=== PATIENT | male | born 1935 | race Caucasian/White ===

== ENCOUNTER 2017-05-08 13:25 | Inpatient (IN) | payer MEDICARE, BC ==
[2017-05-08] MEDS ORDERED: ALBUTEROL SULFATE 2.5 MG/0.5 ML VIAL.NEB IH ONE ×4 (13:35→15:06)
[2017-05-08 13:50] LABS: Hematocrit 41.2 % (42.0-52.0); Hemoglobin 13.8 gm/dL (13.5-18.0); Mean Cell Volume 90.7 fl (78-100); Mean Corpuscular Hemoglobin 30.4 pg (27-31); Mean Corpuscular Hgb Conc 33.5 g/dl (32-36); Mean Platelet Volume 11.6 fl (6.0-9.5); Platelet Count 180 K/mm3 (150-450); Red Blood Count 4.54 M/mm3 (4.7-6.0); Red Cell Distribution Width 15.3 % (11.5-14.0); White Blood Count 8.8 K/mm3 (4.0-10.5)
[2017-05-08 13:54] LABS: Total Cells Counted 100
[2017-05-08] MEDS ORDERED: METHYLPREDNISOLONE SOD SUCC/PF 40 MG/ML VIAL IV ONE (14:03)
[2017-05-08] MEDS ORDERED: METHYLPREDNISOLONE SOD SUCC/PF 40 MG/ML VIAL ONE (14:10)
[2017-05-08 14:12] LABS: Band 4 % (0-2.0); Lymphocyte 14 % (20-51); Monocyte 7 % (0-9); Neutrophil 75 % (42-75); Neutrophil # 6.6 K/mm3 (1.3-6.0); Platelet Estimate Normal (NORMAL); RBC Morphology Normal (NORMAL)
[2017-05-08 14:29] LABS: Albumin * 2.8 gm/dl (3.4-5.0); Anion Gap 12.1 mmol/L (6.8-13.8); BUN/Creatinine Ratio 21.5 (9.0-21.6); Bilirubin, Total 0.5 mg/dL (0.0-1.1); Ca. Corrected For Albumin 9.4 mg/dL (8.4-10.2); Calcium * 8.8 mg/dL (7.9-10.9); Potassium 4.1 mmol/L (3.4-4.6); Total Protein 6.7 gm/dL (6.2-8.2)
[2017-05-08 14:30] LABS: Troponin I 0.032 ng/ml (0.00-0.10)
[2017-05-08] MEDS ORDERED: ALBUTEROL SULFATE 2.5 MG/0.5 ML VIAL.NEB IH PRN (17:21)
[2017-05-08] MEDS ORDERED: METHYLPREDNISOLONE SOD SUCC 80 MG in WATER FOR INJ.,BACTERIOSTATIC 0 ML IV SCH (17:30)
--- NOTE | 2017-05-08 18:59 | HP ---
Chief Complaint - Chief Complaint Date of Service: 05/08/17 Time of Service: 18:53 Chief Complaint: shortness of breath and low Oxygenation History of Present Illness: Rios boykin, is an 82-year-old white male, patient of Solange Baugh, with previous medical history of diabetes mellitus type 2, hypertension, hyperlipidemia, COPD on nocturnal home O2, who was admitted on 03/08/2017 because of shortness of breath and low oxygen saturation. The patient was starting to have URI signs and symptoms 4 days prior to admission. The brought him to our emergency room where his chest x-ray did not show pneumonia. He was told that he had acute bronchitis and was given prednisone and sent home. One day prior to admission his coughing, congestion got worst. He was coughing a lot of tannish phlegm associated with wheezing. His oxygen saturation dropped down to the 70's when he started to go to the bathroom. The then called EMS and the patient was brought to our emergency room. He was saturating in the low 90's with 6 L of mask then nonrebreather. He continued to be tachypneic in the upper 20's and so he was started on BiPap by ED. His CXR showed b/l perihilar opacities- atelectasis vs pulmonary edema but infection could not be ruled out.He was then admited for further treatment. - Patient's Past Medical History Patient History - Medical: Arthritis, Cataracts, Chronic Pain, Diabetes Type 2, Seizures, Other Patient History - Cardiac/Respiratory: Atrial Fibrillation, CHF, COPD, Hypertension, Hyperlipidemia, Myocardial Infarction, Pneumonia Patient History - Cancer: No Hx of Cancer Patient History - Surgical Procedures: Cataracts, Colon Resection, Colonoscopy, T & A, Other Patient History - Other: None - Social History Living Situations: spouse Abuse History: No History of abuse Psych History: Hx of Anxiety, Hx of Depression, Current tx/ever been on anti- depressants or anti-anxiety meds Smoking Status: Former smoker Have you smoked in the past 12 months: No Do you dip or chew tobacco: No Patient requests Smoking Cessation Consult: No Initiate information on Smoking Cessation: No Alcohol Use: rarely Drug Use: none - Immunizations Immunizations Up to Date: Yes Hx Pneumococcal Vaccination: Yes History of Influenza Vaccine: Yes Review Of Systems (GEN) - Review of Systems Generalized/Overall Review: Absent: Chills, Fever Respiratory: Present: Cough, Shortness of Breath, Wheezing Cardiac: Absent: Chest Pain, Edema, Palpitations Abdominal: Absent: Nausea, Vomiting Genitourinary: Absent: Urgency, Frequency Allergies/Adverse Reactions: Allergies Allergy/AdvReac Type Severity Reaction Status Date / Time lisinopril Allergy Unknown Verified 05/08/17 13:43 levofloxacin Allergy Verified 05/08/17 13:43 terazosin AdvReac Pain Verified 05/08/17 13:43 Home Medications: HOME MEDICATIONS Arformoterol Tartrate [Brovana] 15 mcg IH DAILY 02/24/15 [Last Taken Unknown] Cyanocobalamin (Vitamin B-12) [Vitamin B-12] 1,000 mcg PO DAILY 02/24/15 [Last Taken Unknown] Escitalopram Oxalate [Lexapro] 10 mg PO DAILY 02/24/15 [Last Taken Unknown] Furosemide [Lasix] 40 mg PO DAILY 02/24/15 [Last Taken Unknown] glipiZIDE [Glucotrol Xl] 5 mg PO BID 02/24/15 [Last Taken Unknown] Allopurinol [Zyloprim] 300 mg PO BID 05/08/17 [Last Taken Unknown] Amlodipine Besylate 10 mg PO DAILY 05/08/17 [Last Taken Unknown] Budesonide [Pulmicort Respules] 2 ml IH BID 05/08/17 [Last Taken Unknown] Digoxin [Digitek] 125 mcg PO DAILY 05/08/17 [Last Taken Unknown] Furosemide [Lasix] 20 mg PO PRN PRN 05/08/17 [Last Taken Unknown] Magnesium Gluconate 250 mg PO DAILY 05/08/17 [Last Taken Unknown] Metoprolol Tartrate 50 mg PO DAILY 05/08/17 [Last Taken Unknown] Warfarin Sodium [Coumadin] 6 mg PO SUMOWEFRSA 05/08/17 [Last Taken Unknown] Warfarin Sodium [Coumadin] 7 mg PO TUTH 05/08/17 [Last Taken Unknown] guaiFENesin [Mucinex] 1,200 mg PO BID 05/08/17 [Last Taken Unknown] risperiDONE [Risperdal] 10 mg PO BID 05/09/17 [Last Taken Unknown] Exam - Exam Vital Signs: Vital Signs - Last Taken Temp 36.5 C 05/08/17 18:08 Pulse 73 05/08/17 18:08 Resp 25 H 05/08/17 18:08 BP 140/73 05/08/17 18:08 Pulse Ox 91 05/08/17 18:08 Constitutional: Present: Alert, Oriented x3, Cooperative ENT Exam: Present: hard of hearing Eye Exam: bilateral eye: normal inspection, PERRL, EOMI Respiratory: Present: decreased breath sounds, No rales, No wheezing Cardiovascular/Chest: Present: regular rate, rhythm, no JVD, no murmur Abdomen: Present: Normal bowel sounds, soft, nontender, nondistended Extremity: Present: no calf tenderness, pedal edema Diagnostic Studies: Laboratory Results WBC 8.8 K/mm3 (4.0-10.5) 05/08/17 13:49 RBC 4.54 M/mm3 (4.7-6.0) L 05/08/17 13:49 Hgb 13.8 gm/dL (13.5-18.0) 05/08/17 13:49 Hct 41.2 % (42.0-52.0) L 05/08/17 13:49 MCV 90.7 fl (78-100) 05/08/17 13:49 MCH 30.4 pg (27-31) 05/08/17 13:49 MCHC 33.5 g/dl (32-36) 05/08/17 13:49 RDW 15.3 % (11.5-14.0) H 05/08/17 13:49 Plt Count 180 K/mm3 (150-450) 05/08/17 13:49 MPV 11.6 fl (6.0-9.5) H 05/08/17 13:49 Neutrophils % (Manual) 75 % (42-75) 05/08/17 13:49 Band Neuts % (Manual) 4 % (0-2.0) H 05/08/17 13:49 Lymphocytes % (Manual) 14 % (20-51) L 05/08/17 13:49 Monocytes % (Manual) 7 % (0-9) 05/08/17 13:49 Neutrophils # (Manual) 6.6 K/mm3 (1.3-6.0) H 05/08/17 13:49 Lymphocytes # (Manual) 1.2 k/mm3 (1.5-3.5) L 05/08/17 13:49 Monocytes # (Manual) 0.6 k/mm3 (0.0-1.0) 05/08/17 13:49 Platelet Estimate Normal (NORMAL) 05/08/17 13:49 RBC Morphology Normal (NORMAL) 05/08/17 13:49 pCO2 33.9 mmHg (35.0-48.0) L 05/08/17 13:35 pO2 56.8 mmHg (83.0-108.0) L 05/08/17 13:35 HCO3 21.1 mmol/L (21.0-28.0) 05/08/17 13:35 Total CO2 22.1 mmol/L (19.0-24.0) 05/08/17 13:35 Base Excess -2.8 mmol/L (-2.0-3.0) L 05/08/17 13:35 ABG pH 7.41 (7.35-7.45) 05/08/17 13:35 ABG O2 Sat (Measured) 90.2 % (94.0-98.0) L 05/08/17 13:35 Sodium 139 mmol/L (132-142) 05/08/17 13:49 Plasma Sodium 141 mmol/L (130-142) 05/08/17 13:49 Potassium 4.1 mmol/L (3.4-4.6) 05/08/17 13:49 Chloride 104 mmol/L (97-106) 05/08/17 13:49 Carbon Dioxide 27.0 mmol/L (24-32.6) 05/08/17 13:49 Anion Gap 12.1 mmol/L (6.8-13.8) 05/08/17 13:49 BUN 28 mg/dL (6-23) H 05/08/17 13:49 Creatinine 1.30 mg/dL (0.4-1.4) 05/08/17 13:49 Est GFR (Non-Af Amer) 56 mL/min (60-130) L D 05/08/17 13:49 BUN/Creatinine Ratio 21.5 (9.0-21.6) 05/08/17 13:49 Random Glucose 223 mg/dL (70-110) H 05/08/17 13:49 Calcium 8.8 mg/dL (7.9-10.9) 05/08/17 13:49 Calcium Adj for Albumin 9.4 mg/dL (8.4-10.2) 05/08/17 13:49 Total Bilirubin 0.5 mg/dL (0.0-1.1) 05/08/17 13:49 AST 24 U/L (0-48) 05/08/17 13:49 ALT 34 U/L (19-67) 05/08/17 13:49 Alkaline Phosphatase 66 U/L (50-170) 05/08/17 13:49 Troponin I 0.032 ng/ml (0.00-0.10) 05/08/17 13:49 B-Natriuretic Peptide 1693 pg/mL (5-650) H 05/08/17 13:49 Total Protein 6.7 gm/dL (6.2-8.2) 05/08/17 13:49 Albumin 2.8 gm/dl (3.4-5.0) L 05/08/17 13:49 Assessment/Plan - Assessment/Plan (1) Acute exacerbation of chronic obstructive pulmonary disease Assessment: likely due to acute bronchitis r/o beginning pneumonia. will continue with IV antibiotics , IV solumedrol and breathing treatments. will get ABG with current BiPAp setting . Problem: Acute (2) Diabetes mellitus type 2 in obese Assessment: continue with home medications Problem: Chronic (3) Hypertension Assessment: continue with home medications Problem: Chronic Qualifiers: Hypertension type: essential hypertension Qualified Code(s): I10 - Essential (primary) hypertension (4) Hyperlipidemia Assessment: continue with home medications. Problem: Chronic Qualifiers: Hyperlipidemia type: mixed hyperlipidemia Qualified Code(s): E78.2 - Mixed hyperlipidemia (5) History of traumatic brain injury Problem: Acute
[2017-05-08 19:45] LABS: Prothrombin Time (Patient) 24.9 Seconds (9.0-11.0)
[2017-05-08 19:46] LABS: INR 2.47 INR (0.90-1.10)
[2017-05-08] MEDS: AZITHROMYCIN 500 MG in DEXTROSE 5 % IN WATER 250 ML IV SCH ×2 (20:18)
[2017-05-08] MEDS: METHYLPREDNISOLONE SOD SUCC/PF 125 MG/2 ML VIAL IV SCH (20:21)
[2017-05-08] MEDS ORDERED: ALLOPURINOL 100 MG TABLET ONE (21:09)
[2017-05-08] MEDS: glipiZIDE 5 MG TAB.SR.24H PO SCH (21:11)
[2017-05-08] MEDS: ALLOPURINOL 300 MG TABLET PO SCH ×2 (21:13→21:23)
[2017-05-09] MEDS: METHYLPREDNISOLONE SOD SUCC/PF 125 MG/2 ML VIAL IV SCH ×2 (02:18→09:04)
[2017-05-09] MEDS: INSULIN LISPRO 100 UNITS/ML VIAL SC SCH ×4 (07:47→20:10)
[2017-05-09] MEDS: CYANOCOBALAMIN 1,000 MCG TABLET PO SCH (08:51)
[2017-05-09] MEDS: DIGOXIN 0.125 MG TABLET PO SCH (08:52)
[2017-05-09] MEDS: FUROSEMIDE 40 MG TABLET PO SCH (08:52)
[2017-05-09] MEDS: amLODIPine BESYLATE 10 MG TABLET PO SCH (08:52)
[2017-05-09] MEDS: glipiZIDE 5 MG TAB.SR.24H PO SCH ×2 (08:52→17:36)
[2017-05-09] MEDS: risperiDONE 1 MG TABLET PO SCH ×2 (08:52→20:06)
[2017-05-09] MEDS: METOPROLOL TARTRATE 50 MG TABLET PO SCH (08:52)
[2017-05-09] MEDS: METHYLPREDNISOLONE SOD SUCC 80 MG in WATER FOR INJ.,BACTERIOSTATIC 0 ML IV SCH ×3 (09:16→20:05)
[2017-05-09] MEDS ORDERED: POTASSIUM CHLORIDE 20 MEQ TABLET.SA PO ONE (09:55)
[2017-05-09] MEDS ORDERED: FUROSEMIDE 10 MG/ML VIAL IV ONE (09:55)
--- NOTE | 2017-05-09 09:59 | PN ---
Subjective - Date and Time Seen Date: 05/09/17 Time: 09:57 Subjective Narrative: Patient is feeling better. NAD. BipAp off. Objective - Review of Systems Generalized/Overall Review: Denies: Chills, Fever Respiratory: Reports: Cough, Shortness of Breath Cardiac: Denies: Chest Pain, Edema, Palpitations Abdominal: Denies: Nausea, Vomiting Genitourinary Symptoms: Denies: Urgency, Frequency Musculoskeletal Complaints: Reports: Joint Pain - Vitals Vitals: Last Vital Signs Temp 36.5 C 05/09/17 06:44 Pulse 75 05/09/17 08:52 Resp 23 H 05/09/17 07:10 BP 149/70 05/09/17 08:52 Pulse Ox 94 05/09/17 07:49 - Abnormal Lab Findings Abnormal Lab Findings: Abnormal Lab Results 05/08/17 05/08/17 05/08/17 Range/Units 19:00 19:00 19:24 PT 24.9 H (9.0-11.0) Seconds INR (Anticoag Therapy) 2.47 H (0.90-1.10) INR pO2 69.5 L (83.0-108.0) mmHg Base Excess -2.8 L (-2.0-3.0) mmol/L Digoxin 0.4 L (0.5-2.0) ng/mL - Exam Constitutional: Present: Alert, Oriented x3, Cooperative ENT Exam: Present: hearing grossly normal Neck: Present: supple Respiratory: Present: decreased breath sounds, crackles, No wheezing Cardiovascular/Chest: Present: regular rate, rhythm, no JVD, no murmur Abdomen: Present: Normal bowel sounds, soft, nontender, nondistended Extremity: Present: no calf tenderness, pedal edema Assessment/Plan - Problems/Diagnosis (1) Acute exacerbation of chronic obstructive pulmonary disease Problem: Acute Narrative: continue with present management. will give extra lasix dose today. (2) Diabetes mellitus type 2 in obese Problem: Chronic (3) Hypertension Problem: Chronic Qualifiers: Hypertension type: essential hypertension Qualified Code(s): I10 - Essential (primary) hypertension (4) Hyperlipidemia Problem: Chronic Qualifiers: Hyperlipidemia type: mixed hyperlipidemia Qualified Code(s): E78.2 - Mixed hyperlipidemia (5) History of traumatic brain injury Problem: Acute
[2017-05-09] MEDS: NYSTATIN 15 APPL BTL TP SCH ×2 (14:58→20:05)
[2017-05-09] MEDS ORDERED: WARFARIN SODIUM 6 MG TABLET PO SCH (17:00)
[2017-05-09] MEDS: cefTRIAXone SODIUM 1,000 MG in DEXTROSE 5 % IN WATER 50 ML IV SCH ×2 (17:36)
[2017-05-09] MEDS: AZITHROMYCIN 500 MG in DEXTROSE 5 % IN WATER 250 ML IV SCH ×2 (20:08)
[2017-05-10] MEDS: METHYLPREDNISOLONE SOD SUCC 80 MG in WATER FOR INJ.,BACTERIOSTATIC 0 ML IV SCH ×4 (02:08→21:16)
[2017-05-10 05:43] LABS: Prothrombin Time (Patient) 27.3 Seconds (9.0-11.0)
[2017-05-10 05:54] LABS: INR 2.7 INR (0.90-1.10)
[2017-05-10] MEDS: INSULIN LISPRO 100 UNITS/ML VIAL SC SCH ×4 (07:15→21:26)
[2017-05-10] MEDS: MAGNESIUM GLUCONATE PO SCH ×2 (07:16→08:43)
[2017-05-10] MEDS: glipiZIDE 5 MG TAB.SR.24H PO SCH ×2 (08:42→17:03)
[2017-05-10] MEDS: DIGOXIN 0.125 MG TABLET PO SCH (08:42)
[2017-05-10] MEDS: FUROSEMIDE 40 MG TABLET PO SCH (08:42)
[2017-05-10] MEDS: METOPROLOL TARTRATE 50 MG TABLET PO SCH (08:43)
[2017-05-10] MEDS: NYSTATIN 15 APPL BTL TP SCH ×2 (08:43→21:16)
[2017-05-10] MEDS: amLODIPine BESYLATE 10 MG TABLET PO SCH (08:44)
[2017-05-10] MEDS: risperiDONE 1 MG TABLET PO SCH ×2 (08:44→21:16)
[2017-05-10] MEDS: CYANOCOBALAMIN 1,000 MCG TABLET PO SCH (08:45)
--- NOTE | 2017-05-10 09:03 | PN ---
Subjective - Date and Time Seen Date: 05/10/17 Time: 09:00 Subjective Narrative: Positive blood mixed with sputum. Still with cough and wheezing. Objective - Review of Systems Generalized/Overall Review: Denies: Chills, Fever Respiratory: Reports: Cough, Shortness of Breath, Wheezing Cardiac: Denies: Chest Pain, Edema, Palpitations Abdominal: Denies: Nausea, Vomiting Genitourinary Symptoms: Denies: Urgency, Frequency - Vitals Vitals: Last Vital Signs Temp 36.5 C 05/10/17 07:10 Pulse 72 05/10/17 08:44 Resp 23 H 05/10/17 07:10 BP 130/66 05/10/17 08:44 Pulse Ox 94 05/10/17 07:10 - Abnormal Lab Findings Abnormal Lab Findings: Abnormal Lab Results 05/10/17 Range/Units 05:25 PT 27.3 H (9.0-11.0) Seconds INR (Anticoag Therapy) 2.70 H (0.90-1.10) INR - Exam Constitutional: Present: Alert, Oriented x3, Cooperative ENT Exam: Present: hearing grossly normal Neck: Present: supple Respiratory: Present: decreased breath sounds, crackles, wheezing Cardiovascular/Chest: Present: regular rate, rhythm, no JVD, no murmur Abdomen: Present: Normal bowel sounds, soft, nontender, nondistended Extremity: Present: no calf tenderness, pedal edema Assessment/Plan - Problems/Diagnosis (1) Acute respiratory failure with hypoxia Problem: Acute Narrative: ABG pO2 of 56.8 and O2 Saturation of 90.2% with 6 L NC O2. (2) Acute exacerbation of chronic obstructive pulmonary disease Problem: Acute Narrative: not successful with weaning daytime O2 . continue with present management. will get a follow up CXR and labs. (3) Diabetes mellitus type 2 in obese Problem: Chronic (4) Hypertension Problem: Chronic Qualifiers: Hypertension type: essential hypertension Qualified Code(s): I10 - Essential (primary) hypertension (5) Hyperlipidemia Problem: Chronic Qualifiers: Hyperlipidemia type: mixed hyperlipidemia Qualified Code(s): E78.2 - Mixed hyperlipidemia (6) History of traumatic brain injury Problem: Acute
[2017-05-10 09:19] LABS: Hematocrit 40.1 % (42.0-52.0); Hemoglobin 13.6 gm/dL (13.5-18.0); Mean Cell Volume 88.7 fl (78-100); Mean Corpuscular Hemoglobin 30.1 pg (27-31); Mean Corpuscular Hgb Conc 33.9 g/dl (32-36); Mean Platelet Volume 10.8 fl (6.0-9.5); Platelet Count 200 K/mm3 (150-450); Red Blood Count 4.52 M/mm3 (4.7-6.0); Red Cell Distribution Width 14.2 % (11.5-14.0); White Blood Count 10.9 K/mm3 (4.0-10.5)
[2017-05-10 09:22] LABS: Anion Gap 9.6 mmol/L (6.8-13.8); BUN/Creatinine Ratio 30.1 (9.0-21.6); Calcium * 8.5 mg/dL (7.9-10.9); Carbon Dioxide 28.3 mmol/L (24-32.6); Estimated Creat Clear 53.8; Potassium 3.9 mmol/L (3.4-4.6); Total Cells Counted 100
[2017-05-10 09:33] LABS: Band 12 % (0-2.0); Lymphocyte 12 % (20-51); Monocyte 4 % (0-9); Neutrophil 72 % (42-75); Neutrophil # 7.8 K/mm3 (1.3-6.0)
[2017-05-10 09:34] LABS: Platelet Estimate Normal (NORMAL)
[2017-05-10 09:36] LABS: RBC Morphology Normal (NORMAL)
[2017-05-10] MEDS ORDERED: WARFARIN SODIUM 6 MG TABLET PO SCH (09:48)
[2017-05-10] MEDS: ALBUTEROL SULFATE/IPRATROPIUM 3 ML NEBU IH SCH ×2 (13:21→18:06)
[2017-05-10] MEDS ORDERED: WARFARIN SODIUM 6 MG, WARFARIN SODIUM 1 MG PO SCH ×2 (17:00)
[2017-05-10] MEDS: cefTRIAXone SODIUM 1,000 MG in DEXTROSE 5 % IN WATER 50 ML IV SCH ×2 (17:17)
[2017-05-10] MEDS ORDERED: RISPERIDONE PO SCH (21:00)
[2017-05-10] MEDS: AZITHROMYCIN 500 MG in DEXTROSE 5 % IN WATER 250 ML IV SCH ×2 (21:23)
[2017-05-11] MEDS: ALBUTEROL SULFATE/IPRATROPIUM 3 ML NEBU IH SCH ×2 (00:51→07:55)
[2017-05-11] MEDS: METHYLPREDNISOLONE SOD SUCC 80 MG in WATER FOR INJ.,BACTERIOSTATIC 0 ML IV SCH (02:37)
[2017-05-11 06:12] LABS: Prothrombin Time (Patient) 23.2 Seconds (9.0-11.0)
[2017-05-11 06:50] LABS: INR 2.3 INR (0.90-1.10)
[2017-05-11] MEDS: INSULIN LISPRO 100 UNITS/ML VIAL SC SCH (07:29)
[2017-05-11 07:50] LABS: Hematocrit 39.3 % (42.0-52.0); Hemoglobin 13.7 gm/dL (13.5-18.0); Mean Cell Volume 87.7 fl (78-100); Mean Corpuscular Hemoglobin 30.6 pg (27-31); Mean Corpuscular Hgb Conc 34.9 g/dl (32-36); Mean Platelet Volume 10.3 fl (6.0-9.5); Platelet Count 215 K/mm3 (150-450); Red Blood Count 4.48 M/mm3 (4.7-6.0); Red Cell Distribution Width 14.3 % (11.5-14.0); White Blood Count 13.4 K/mm3 (4.0-10.5)
[2017-05-11 07:52] LABS: Total Cells Counted 100
--- NOTE | 2017-05-11 07:55 | PN ---
Progess Note - Interim Narrative: 05/11/17 07:53 Patient says he is feeling better but still gets very SOB with exertion. CXR shows whiteout of LLF. O2 89% on 4 L NC. Danny talk to Dr. Pollock for possible transfer.
[2017-05-11 08:00] LABS: Atypical (Reactive) Lymph 2 % (0-2); Band 2 % (0-2.0); Immature Granulocyte 3 (0-1); Lymphocyte 15 % (20-51); Monocyte 4 % (0-9); Neutrophil 74 % (42-75); Neutrophil # 9.9 K/mm3 (1.3-6.0); Platelet Estimate Normal (NORMAL); RBC Morphology Normal (NORMAL)
[2017-05-11 08:05] LABS: Anion Gap 11.4 mmol/L (6.8-13.8); BUN/Creatinine Ratio 34.6 (9.0-21.6); Calcium * 8.6 mg/dL (7.9-10.9); Carbon Dioxide 27.6 mmol/L (24-32.6); Estimated Creat Clear 56.9
--- NOTE | 2017-05-11 08:15 | DS ---
Transfer Discharge Summary - Diagnosis(s)/Problems (1) Acute respiratory failure with hypoxia Problem: Acute (2) Acute exacerbation of chronic obstructive pulmonary disease Problem: Acute (3) Diabetes mellitus type 2 in obese Problem: Chronic (4) Hypertension Problem: Chronic (5) Hyperlipidemia Problem: Chronic (6) History of traumatic brain injury Problem: Acute - Course Description of Stay: Rios boykin, is an 82-year-old white male, patient of Solange Baugh, with previous medical history of diabetes mellitus type 2, hypertension, hyperlipidemia, COPD on nocturnal home O2, who was admitted on 03/08/2017 because of shortness of breath and low oxygen saturation. The patient was starting to have URI signs and symptoms 4 days prior to admission. The brought him to our emergency room where his chest x-ray did not show pneumonia. He was told that he had acute bronchitis and was given prednisone and sent home. One day prior to admission his coughing, congestion got worst. He was coughing a lot of tannish phlegm associated with wheezing. His oxygen saturation dropped down to the 70's when he started to go to the bathroom. The then called EMS and the patient was brought to our emergency room. He was saturating in the low 90's with 6 L of mask then nonrebreather. He continued to be tachypneic in the upper 20's and so he was started on BiPap by ED. His CXR showed b/l perihilar opacities- atelectasis vs pulmonary edema but infection could not be ruled out.He was then admitted for further treatment. He was placed on BiPap and started on IV antibiotics, IV solumedrol, and breathing treatments. He developed hemoptysis and Coumadin was hled. His follow CXR showed white out of his LLF - pleural effusion with atleectasis vs mucus plugging. His IV antibiotics was changed to IV zsyn and IV azithromycin continued. his Sputum culture shows Hemophilus species. Ckinically he feels better but gets very SOB with exertion.I talked to Dr. Pollock , his pulmono, logist , and she is accepting the patientfor possible bronchoscopy. Procedures Performed: none - Results and Findings Results and Findings: Laboratory Results - last 24 hr 05/10/17 05/10/17 05/11/17 05:25 05:25 05:35 WBC 10.9 H D 13.4 H D RBC 4.52 L 4.48 L Hgb 13.6 13.7 Hct 40.1 L 39.3 L MCV 88.7 87.7 MCH 30.1 30.6 MCHC 33.9 34.9 RDW 14.2 H 14.3 H Plt Count 200 215 MPV 10.8 H 10.3 H Neutrophils % (Manual) 72 74 Band Neuts % (Manual) 12 H 2 Lymphocytes % (Manual) 12 L 15 L Monocytes % (Manual) 4 4 Immature Granulocytes 3 H Neutrophils # (Manual) 7.8 H 9.9 H Lymphocytes # (Manual) 1.3 L 2.0 Monocytes # (Manual) 0.4 0.5 Atypic/Reactive Lymphs 2 Platelet Estimate Normal Normal RBC Morphology Normal Normal PT INR (Anticoag Therapy) Sodium 139 Plasma Sodium 141 Potassium 3.9 Chloride 105 Carbon Dioxide 28.3 Anion Gap 9.6 BUN 34 H Creatinine 1.13 Est GFR (Non-Af Amer) 66 BUN/Creatinine Ratio 30.1 H Random Glucose 234 H Calcium 8.5 05/11/17 05:55 WBC RBC Hgb Hct MCV MCH MCHC RDW Plt Count MPV Neutrophils % (Manual) Band Neuts % (Manual) Lymphocytes % (Manual) Monocytes % (Manual) Immature Granulocytes Neutrophils # (Manual) Lymphocytes # (Manual) Monocytes # (Manual) Atypic/Reactive Lymphs Platelet Estimate RBC Morphology PT 23.2 H INR (Anticoag Therapy) 2.30 H Sodium Plasma Sodium Potassium Chloride Carbon Dioxide Anion Gap BUN Creatinine Est GFR (Non-Af Amer) BUN/Creatinine Ratio Random Glucose Calcium - Medications Medications: Active Medications Albuterol/Ipratropium (Duoneb 2.5-0.5mg/3ml Soln) 3 ml IH Q6HRT [facility] Stop: 06/09/17 13:01 Last Admin: 05/11/17 07:55 Dose: 3 ml Amlodipine Besylate (Norvasc) 10 mg PO DAILY [facility] Stop: 06/08/17 09:01 Last Admin: 05/10/17 08:44 Dose: 10 mg Cyanocobalamin (Vitamin B-12) 1,000 mcg PO DAILY [facility] Stop: 06/08/17 09:01 Last Admin: 05/10/17 08:45 Dose: 1,000 mcg Digoxin (Lanoxin) 0.125 mg PO DAILY [facility] Stop: 06/08/17 09:01 Last Admin: 05/10/17 08:42 Dose: 0.125 mg Furosemide (Lasix) 40 mg PO DAILY [facility] Stop: 06/08/17 09:01 Last Admin: 05/10/17 08:42 Dose: 40 mg Glipizide (Glucotrol Xl) 5 mg PO BIDWM [facility] Stop: 06/07/17 21:01 Last Admin: 05/10/17 17:03 Dose: 5 mg Guaifenesin (Mucinex) 1,200 mg PO BID [facility] Stop: 06/07/17 21:01 Last Admin: 05/10/17 21:15 Dose: 1,200 mg Azithromycin 500 mg/ Dextrose/ (Water) 250 mls @ 250 mls/hr IV Q24H [facility] PRN Reason: Protocol Stop: 06/07/17 20:01 Last Admin: 05/10/17 21:23 Dose: 250 mls/hr Methylprednisolone Sodium (Succinate 80 mg/ Sterile Water) 0.64 mls @ 28.8 mls/ hr IV Q6H [facility] Stop: 06/08/17 09:01 Last Admin: 05/11/17 02:37 Dose: 28.8 mls/hr Insulin Human Lispro (Humalog) 0 units SC ACHSINS [facility] PRN Reason: Protocol Stop: 06/08/17 07:31 Last Admin: 05/11/17 07:29 Dose: 6 units Metoprolol Tartrate (Lopressor) 50 mg PO DAILY [facility] Stop: 06/08/17 09:01 Last Admin: 05/10/17 08:43 Dose: 50 mg Magnesium Gluconate (250 Mg) 250 mg PO DAILY [facility] Stop: 06/08/17 09:01 Last Admin: 05/10/17 08:43 Dose: Not Given Nystatin (Mycostatin Powder) 1 appl TP BID [facility] Stop: 06/08/17 13:01 Last Admin: 05/10/17 21:16 Dose: 1 appl Risperidone (Risperdal) 1 mg PO BID [facility] Stop: 06/08/17 09:01 Last Admin: 05/10/17 21:16 Dose: 1 mg Discontinued Medications Albuterol Sulfate (Albuterol Sulfate 2.5 Mg/0.5ml) 2.5 mg IH ONCE ONE Stop: 05/08/17 13:36 Last Admin: 05/08/17 14:04 Dose: 2.5 mg Albuterol Sulfate (Albuterol Sulfate 2.5 Mg/0.5ml) 2.5 mg IH ONCE ONE Stop: 05/08/17 15:07 Last Admin: 05/08/17 15:08 Dose: 2.5 mg Allopurinol (Zyloprim) 300 mg PO BID [facility] Stop: 06/07/17 21:01 Last Admin: 05/08/17 21:23 Dose: Not Given Furosemide (Lasix) 40 mg IV ONCE ONE Stop: 05/09/17 09:56 Last Admin: 05/09/17 10:55 Dose: 40 mg Ceftriaxone Sodium 1,000 mg/ (Dextrose/Water) 100 mls @ 200 mls/hr IV ONCE ONE PRN Reason: Protocol Stop: 05/08/17 17:33 Last Admin: 05/08/17 19:26 Dose: 200 mls/hr Ceftriaxone Sodium 1,000 mg/ (Dextrose/Water) 100 mls @ 200 mls/hr IV Q24H [facility] PRN Reason: Protocol Stop: 06/07/17 17:31 Last Admin: 05/08/17 19:27 Dose: Not Given Ceftriaxone Sodium 1,000 mg/ (Dextrose/Water) 50 mls @ 100 mls/hr IV Q24H [facility] PRN Reason: Protocol Stop: 06/08/17 17:31 Last Admin: 05/10/17 17:17 Dose: 100 mls/hr Methylprednisolone Sodium Succinate (Solu-Medrol) 80 mg IV ONCE ONE Stop: 05/08/17 14:04 Last Admin: 05/08/17 14:13 Dose: 80 mg Methylprednisolone Sodium Succinate (Solu-Medrol (Pf)) 80 mg IV Q6H [facility] Stop: 06/07/17 20:01 Last Admin: 05/09/17 09:04 Dose: Not Given Potassium Chloride (K-Dur) 20 meq PO ONCE ONE Stop: 05/09/17 09:56 Last Admin: 05/09/17 10:55 Dose: 20 meq Warfarin Sodium (Coumadin) 6 mg PO [id number] [facility] Stop: 06/08/17 17:01 Last Admin: 05/09/17 17:36 Dose: 6 mg Warfarin Sodium 6 mg/ Warfarin (Sodium 1 mg) 7 mg PO [id number]@1700 [facility] Stop: 06/09/17 17:01 Last Admin: 05/10/17 17:03 Dose: 7 mg - Disposition Disposition: [facility] Condition: Fair Discharge Date: 05/11/17
[2017-05-11] MEDS: MAGNESIUM GLUCONATE PO SCH (08:34)
[2017-05-11] MEDS: glipiZIDE 5 MG TAB.SR.24H PO SCH (08:37)
[2017-05-11] MEDS: METOPROLOL TARTRATE 50 MG TABLET PO SCH (08:37)
[2017-05-11] MEDS: DIGOXIN 0.125 MG TABLET PO SCH (08:37)
[2017-05-11] MEDS: FUROSEMIDE 40 MG TABLET PO SCH (08:37)
[2017-05-11] MEDS: CYANOCOBALAMIN 1,000 MCG TABLET PO SCH (08:38)
[2017-05-11] MEDS: amLODIPine BESYLATE 10 MG TABLET PO SCH (08:38)
[2017-05-11] MEDS: risperiDONE 1 MG TABLET PO SCH (08:38)
[2017-05-11 08:39] VITALS: BP 131/64
[2017-05-11] MEDS ORDERED: PIPERACILLIN SODIUM/TAZOBACTAM 3.375 GM in NORMAL SALINE 100 ML IV SCH (09:00)
--- NOTE | 2017-05-12 09:14 | ERNOTE ---
Dyspnea - Date Date of Service: 05/12/17 - General Presenting Symptoms: shortness of breath, difficulty of breathing, wheezing Time Seen by Provider: 05/08/17 13:35 Source: patient, family Exam Limitations: no limitations - Immun/Allergies/Home Medications Immunizations: IMMUNIZATION HX Immunizations Up to Date Yes History of Influenza Vaccine Yes Hx Pneumococcal Vaccination Yes Allergies/Adverse Reactions: Allergies lisinopril Allergy (Unknown, Verified 05/08/17 13:43) levofloxacin Allergy (Verified 05/08/17 13:43) terazosin Adverse Reaction (Verified 05/08/17 13:43) Pain Home Medications: HOME MEDICATIONS Arformoterol Tartrate [Brovana] 15 mcg IH DAILY 02/24/15 [Last Taken Unknown] Cyanocobalamin (Vitamin B-12) [Vitamin B-12] 1,000 mcg PO DAILY 02/24/15 [Last Taken Unknown] Escitalopram Oxalate [Lexapro] 10 mg PO DAILY 02/24/15 [Last Taken Unknown] Furosemide [Lasix] 40 mg PO DAILY 02/24/15 [Last Taken Unknown] glipiZIDE [Glucotrol Xl] 5 mg PO BID 02/24/15 [Last Taken Unknown] Allopurinol [Zyloprim] 300 mg PO BID 05/08/17 [Last Taken Unknown] Amlodipine Besylate 10 mg PO DAILY 05/08/17 [Last Taken Unknown] Budesonide [Pulmicort Respules] 2 ml IH BID 05/08/17 [Last Taken Unknown] Digoxin [Digitek] 125 mcg PO DAILY 05/08/17 [Last Taken Unknown] Furosemide [Lasix] 20 mg PO PRN PRN 05/08/17 [Last Taken Unknown] Magnesium Gluconate 250 mg PO DAILY 05/08/17 [Last Taken Unknown] Metoprolol Tartrate 50 mg PO DAILY 05/08/17 [Last Taken Unknown] Warfarin Sodium [Coumadin] 6 mg PO SUMOWEFRSA 05/08/17 [Last Taken Unknown] Warfarin Sodium [Coumadin] 7 mg PO TUTH 05/08/17 [Last Taken Unknown] guaiFENesin [Mucinex] 1,200 mg PO BID 05/08/17 [Last Taken Unknown] risperiDONE [Risperdal] 1 mg PO BID 05/09/17 [Last Taken Unknown] - History of Present Illness Narrative: patient had been recieving outpatient tereatment for copd, became progressively worse with low saturations and dyspnea Severity: moderate Treatment [facility]: by patient, paramedics, albuterol Initiating event: Reports: upper resp illness Frequency of episodes: Reports: frequent episodes Modifying Factors - (Improves): Reports: rest Modifying Factors (Worsens): Reports: coughing Associated Symptoms-Dyspnea: Reports: palpitations, cough, wheezing, dizziness, lightheadedness, weakness Prior Treatment: Reports: recently seen, treated by physician Review of Systems - Narrative Narrative: promimnent hx of copd - Review of Systems Constitutional: Present: See HPI, weakness, fatigue, malaise EYE: Present: no symptoms reported ENT: Present: no symptoms reported Respiratory: Present: See HPI, shortness of breath, cough, wheezing Cardiology: Present: no symptoms reported Gastrointestinal/Abdominal: Present: no symptoms reported Genitourinary: Present: no symptoms reported Musculoskeletal: Present: no symptoms reported Skin: Present: no symptoms reported Neurological: Present: no symptoms reported Endocrine: Present: no symptoms reported Hematologic/Lymphatic: Present: no symptoms reported Psych: Present: no symptoms reported All Other Systems: All systems neg except as marked - Narrative Narrative: pertanent for copd - Patient's Past Medical History Patient History - Medical: Arthritis, Cataracts, Chronic Pain, Diabetes Type 2, Seizures, Other Patient History - Cardiac/Respiratory: Atrial Fibrillation, CHF, COPD, Hypertension, Hyperlipidemia, Myocardial Infarction, Pneumonia Patient History - Cancer: No Hx of Cancer Patient History - Surgical Procedures: Cataracts, Colon Resection, Colonoscopy, T & A, Other Patient History - Other: None - Family History Family History:: no untoward family reactions to anesthesia, no familial bleeding tendencies, no family history of clotting disorders, no family history of premature - Social History Living Situations: spouse Abuse History: No History of abuse Psych History: Hx of Anxiety, Hx of Depression, Current tx/ever been on anti- depressants or anti-anxiety meds Smoking Status: Former smoker Have you smoked in the past 12 months: No Do you dip or chew tobacco: No Patient requests Smoking Cessation Consult: No Initiate information on Smoking Cessation: No Alcohol Use: rarely Drug Use: none - Immunizations Immunizations Up to Date: Yes Hx Pneumococcal Vaccination: Yes History of Influenza Vaccine: Yes Physical Exam - Physical Exam General Appearance: Present: moderate distress Head Exam: Present: normal inspection, no evidence of injury Eye Exam: Normal inspection: bilateral, PERRL: bilateral, EOMI: bilateral Ears, Nose, Throat: Present: normal ENT inspection Neck: Present: normal inspection, nontender Respiratory: Present: respiratory distress, decreased breath sounds, rales, rhonchi, wheezing Cardiovascular/Chest: Present: tachycardia Peripheral Pulses: N=norm/S=strong/W=weak/B=bound/A=absent: Carotid (R): Normal , Carotid (L): Normal, Radial (R): Normal, Radial (L): Normal, Femoral (R): Normal, Femoral (L): Normal, Dorsalis-pedis (R): Normal, Dorsalis-pedis (L): Normal Gastrointestinal/Abdominal: Present: normal bowel sounds, nontender, nondistended, soft, no organomegaly Back Exam: Present: normal inspection, normal range of motion, no CVA tenderness , no vertebral tenderness Extremity Exam: Present: normal inspection, non-tender, normal range of motion, no edema Neurological Exam: Present: alert, oriented, normal mood/affect DTR: N=norm/NB=norm/brisk/A=abs/DD=dull/dimin/HC=hyperactive: Bicep (R): Normal , Bicep (L): Normal, Tricep (R): Normal, Tricep (L): Normal, Knee (R): Normal, Knee (L): Normal, Ankle (R): Normal ED Progress - Date and Time Seen: Date and Time: 05/12/17 09:12 patient improved with institution of b-pap - Results and Orders Patient's Lab Results:: I have reviewed the patient's lab results. - Vital Signs Patient's Vital Signs:: I have reviewed the patient's vital signs. - EKG EKG: NSR EKG read: Interp. by me - X-Ray copd with perihilar infiltrates Interpretation: Reviewed by me - Progress/Reassessment Chief Complaint: Upper Respiratory Symptoms Progress:: Improved - Transfer of Care Expected Disposition: Admit Plan - Plan Plan: to be admitted Departure Clinical Impression: Acute exacerbation of chronic obstructive pulmonary disease - Departure Disposition: [facility] Condition: Fair
== END 2017-05-11 09:10 | disposition short-term general hospital (02) | DRG 189 ==
LOC: ER 13:25 → MS 17:07
PROVIDERS: ADMIT Internal Medicine; ATTEND Internal Medicine
PROC: 4A033R1 Measurement of Arterial Saturation, Peripheral, Percutaneous Approach (ICD-10-PCS; principal; 2017-05-08)
DX: J96.01 Acute respiratory failure with hypoxia (principal); J44.1 Chronic obstructive pulmonary disease with (acute) exacerbation; T17.890A Other foreign object in other parts of respiratory tract causing asphyxiation, initial encounter; J98.11 Atelectasis; E11.9 Type 2 diabetes mellitus without complications; E78.2 Mixed hyperlipidemia; I10 Essential (primary) hypertension; I48.2 Chronic atrial fibrillation; Z79.01 Long term (current) use of anticoagulants; Z99.81 Dependence on supplemental oxygen; Z87.820 Personal history of traumatic brain injury

== ENCOUNTER 2020-06-15 14:20 | Observation (INO) ==
[2020-06-15 14:41] LABS: Hematocrit 38.4 % (42.0-52.0); Hemoglobin 12.5 gm/dL (13.5-18.0); Mean Cell Volume 91.6 fl (78-100); Mean Corpuscular Hemoglobin 29.8 pg (27-31); Mean Corpuscular Hgb Conc 32.6 g/dl (32-36); Mean Platelet Volume 8.9 fl (8-11.3); Neutrophil # 6.6 K/mm3 (1.3-6.0); Neutrophil % 73.2 % (42-75.0); Platelet Count 183 K/mm3 (150-450); Red Blood Count 4.19 M/mm3 (4.7-6.0); Red Cell Distribution Width 14.1 % (11.5-14.0)
[2020-06-15] MEDS ORDERED: NORMAL SALINE 1,000 ML IV ONE (14:44)
[2020-06-15 14:53] LABS: Albumin * 3.1 gm/dl (3.4-5.0); Anion Gap 14.3 mmol/L (6.8-13.8); BUN/Creatinine Ratio 19.1 (9.0-21.6); Bilirubin, Total 0.8 mg/dL (0.0-1.1); Ca. Corrected For Albumin 8.7 mg/dL (8.4-10.2); Calcium * 8.3 mg/dL (7.9-10.9); Carbon Dioxide 28.7 mmol/L (24-32.6); Total Protein 6.7 gm/dL (6.2-8.2)
[2020-06-15] MEDS ORDERED: cefTRIAXone SODIUM 1,000 MG/100 ML BAG IV ONE (14:58)
[2020-06-15 15:05] LABS: Prothrombin Time (Patient) 54.1 Seconds (9.1-10.7)
[2020-06-15 15:07] LABS: INR 5.65 INR (0.92-1.08)
[2020-06-15 15:13] LABS: TSH * 0.941 uIU/mL (0.358-3.74)
[2020-06-15 15:14] LABS: Troponin I Less than 0.017 ng/mL (0.00-0.10)
[2020-06-15 15:18] LABS: Urine Appearance Clear (CLEAR); Urine Bilirubin Negative (NEGATIVE); Urine Color Yellow; Urine Ketone Negative (NEGATIVE)
[2020-06-15 15:19] LABS: Urine Bacteria None Seen; Urine Blood Negative /ul (NEGATIVE); Urine Nitrite Negative (NEGATIVE); Urine Protein Negative (NEGATIVE); Urine RBC None Seen /hpf (0-5); Urine Urobilinogen Normal (NORMAL); Urine WBC None Seen /hpf (0-5)
--- NOTE | 2020-06-15 17:20 | ERNOTE ---
Dizziness ER Record Date of Service: 06/15/20 Presenting Symptoms: weakness Time Seen by Provider: 06/15/20 14:40 Source: patient, family Exam Limitations: hard of hearing Immunizations: IMMUNIZATION HX Immunizations Up to Date Yes History of Influenza Vaccine Yes Hx Pneumococcal Vaccination Yes Allergies/Adverse Reactions: Allergies Allergy/AdvReac Type Severity Reaction Status Date / Time lisinopril Allergy Unknown Verified 06/15/20 14:26 levofloxacin Allergy Verified 06/15/20 14:26 terazosin AdvReac Pain Verified 06/15/20 14:26 tramadol AdvReac Other Verified 06/15/20 17:50 Home Medications: HOME MEDICATIONS Arformoterol Tartrate [Brovana] 15 mcg INHALATION DAILY 02/24/15 [Last Taken Unknown] Cyanocobalamin (Vitamin B-12) [Vitamin B-12] 1,000 mcg PO DAILY 02/24/15 [Last Taken Unknown] Escitalopram Oxalate [Lexapro] 10 mg PO DAILY 02/24/15 [Last Taken Unknown] Furosemide [Lasix] 40 mg PO DAILY 02/24/15 [Last Taken Unknown] glipiZIDE [Glucotrol Xl] 5 mg PO BID 02/24/15 [Last Taken Unknown] Amlodipine Besylate 10 mg PO DAILY 05/08/17 [Last Taken Unknown] Budesonide [Pulmicort Respules] 2 ml INHALATION BID 05/08/17 [Last Taken Unknown] Magnesium Gluconate 250 mg PO DAILY 05/08/17 [Last Taken Unknown] guaiFENesin [Mucinex] 1,200 mg PO BID 05/08/17 [Last Taken Unknown] risperiDONE [Risperdal] 1 mg PO BID 05/09/17 [Last Taken Unknown] Lift chair 0 .ROUTE .MEDSUPPLY #1 ea 03/16/19 [Last Taken Unknown] ipratropium bromide 0.02 % solution for inhalation 1.25 ml IH BID ml 03/16/19 [Last Taken Unknown] lorazepam 0.5 mg tablet 0.5 mg PO DAILY PRN 03/16/19 [Last Taken Unknown] metoprolol tartrate 50 mg tablet 25 mg PO BID tab 03/16/19 [Last Taken Unknown] potassium chloride 20 mEq tablet,extended release 20 meq PO DAILY 03/16/19 [Last Taken Unknown] pyridoxine (vitamin B6) 100 mg tablet 100 mg PO DAILY 03/16/19 [Last Taken Unknown] sodium chloride 0.9 % for nebulization 2.5 ml IH Q8H PRN 03/16/19 [Last Taken Unknown] warfarin 6 mg tablet 7 mg PO DAILY tab 03/16/19 [Last Taken Unknown] traMADol HCL [Ultram] 50 mg PO QID PRN 06/15/20 [Last Taken Unknown] - History of Present Illness Narrative: Patient presents to the ED for evaluation of weakness by ambulance. he has been weak for over a week. Had a fall around the of this month with back and hip pains since that time. Was seen at [facility] with negative x-rays and sent home. Has not been able to get out of bed since that time. Generalized weakness. No fever. AGDAAGUX which makes this history very difficult to obtain. gives most history. No apparent focal weakness. Cannot bear weight but this has been ever since his fall. Timing and Duration: still present Associated Symptoms: Absent: vomiting, headache Decreased ability to stand/walk:: Present: unable to walk Usually:: Absent: bed-ridden Modifying Factors - (Improves): Reports: nothing Modifying Factors - (Worsens): Reports: nothing Prior Treament: Reports: recently seen Review of Systems - Narrative Narrative: unable to obtain ROS in entirety due to AGDAAGUX Medical History (Last Reviewed 06/15/20 @ 17:57 by Wild Rich MD) Anxiety Atrial flutter Osteoarthritis COPD (chronic obstructive pulmonary disease) Degenerative joint disease of ankle Diabetes Hyperlipidemia Hypertension TBI (traumatic brain injury) Surgical History: Surgical History (Last Reviewed 06/15/20 @ 17:57 by Wild Rich MD) Encounter for adjustment and management of implanted hearing device History of colon resection Onset Date: ~2009 [facility]- Dr. Sampson History of colonoscopy Onset Date: Unknown History of extraction of renal calculus Onset Date: Unknown Family History: Family History (Last Reviewed 06/15/20 @ 17:57 by Wild Rich MD) Other No pertinent family history Social History: (Last Reviewed 06/15/20 @ 17:57 by Wild Rich MD) Social History: Marital status: lives independently: Yes household members: spouse current occupational status: retired Highest level of school completed/degree received: high school graduate Service: No Tobacco: Smoking Status: Former smoker Alcohol: alcohol intake: current Alcohol type: wine alcohol intake frequency: 0-2 drinks per day Dietary Habits: caffeine: No Physical Exam - Physical Exam General Appearance: Present: alert, no apparent distress Head Exam: Present: normal inspection, no evidence of injury Eye Exam: Normal inspection: bilateral, PERRL: bilateral Ears, Nose, Throat: Present: normal ENT inspection, dry mucous membranes Neck: Present: normal inspection Respiratory: Present: no respiratory distress, normal breath sounds, no accessory muscle use Cardiovascular/Chest: Present: regular rate, rhythm, normal peripheral pulses Gastrointestinal/Abdominal: Present: normal bowel sounds, nontender, nondistended, soft Rectal Exam: Present: normal rectal tone. Absent: decreased tone Back Exam: Present: other - no clear point vertebral tenderness. Absent: CVA tenderness (R), CVA tenderness (L) Extremity Exam: Present: other - I cannot reproduce any tenderness in kylie hips or pelvis. Absent: joint swelling Neurological Exam: Present: alert, other - generalized weakness noted. No clear findings of cauda-equina syndrome but generally weak Skin Exam: Present: normal color, warm/dry Progress - Results and Orders Patient's Lab Results:: I have reviewed the patient's lab results. - Vital Signs Patient's Vital Signs:: I have reviewed the patient's vital signs. Vital Signs: Vital Signs 06/15/20 14:23 06/15/20 15:01 06/15/20 15:52 Temperature 36.4 C Pulse Rate 67 65 134 H Respiratory Rate 22 H 20 20 Blood Pressure 167/73 H 164/77 H 194/88 H O2 Sat by Pulse Oximetry 93 93 93 - EKG EKG #1 EKG read: Interp. by me EKG Comments: Sinus rhythm are 69. LBBB ( old), no clear evidence of STEMI - X-Ray X-Ray #1 X-Ray: chest Interpretation: Interp. by me X-ray Comments: I personally reviewed CXR image as well as official radiology report - CT/Ultrasound CT/Ultrasound Narrative: I reviewed official radiology report for [facility] CT - Progress/Reassessment Chief Complaint: Dizziness Progress Note-Subjective: 06/15/20 17:59 Patient does not have clear evidenc eof cauda-equina syndrome but is unable to walk due to generalized weakness and pain. He has had x-rays so should be considered for MRI to further evaluate pelvis and hips. He does have AAA but no suggestion that this is causing any of his Sx at this time. I discussed the case at length with Dr Henderson who will admit for further evaluation and management. Urinary retention resolved with Melendez. Family agreeable. Departure Clinical Impression: Dehydration, Generalized weakness, Fall, Gait instability, Pain in pelvis, AAA (abdominal aortic aneurysm), Supratherapeutic INR, Urinary retention - Departure Disposition: Still a patient Condition: Fair
--- NOTE | 2020-06-15 20:43 | HP ---
Chief Complaint - Chief Complaint Date of Service: 06/15/20 Time of Service: 20:42 Chief Complaint: fall, unable to walk History of Present Illness: History obtained primarily from ERP. Patient is extremely hard of hearing and does not understand many questions. When asked why he came into the ED today, he reports he could not get warm. He states he had a fall the other day and has bilateral hip pain. He reportedly went to the ER at [facility], and x-rays were negative. ERP checked rectal tone, which was normal. Unable to obtain review of systems questions. 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 He is admitted for physical therapy evaluation and potential placement. ED workup also found elevated INR of 5.65. No significant electrolyte abnormalities, neg troponin, and lactate not elevated. 5 cm AAA found on CT. Mild-moderate canal stenosis of L4-5. Medical History (Last Reviewed 06/15/20 @ 17:57 by Wild Rich MD) Anxiety Atrial flutter Osteoarthritis COPD (chronic obstructive pulmonary disease) Degenerative joint disease of ankle Diabetes Hyperlipidemia Hypertension TBI (traumatic brain injury) Surgical History: Surgical History (Last Reviewed 06/15/20 @ 17:57 by Wild Rich MD) Encounter for adjustment and management of implanted hearing device History of colon resection Onset Date: ~2009 [facility]- Dr. Sampson History of colonoscopy Onset Date: Unknown History of extraction of renal calculus Onset Date: Unknown Family History: Family History (Last Reviewed 06/15/20 @ 17:57 by Wild Rich MD) Other No pertinent family history Social History: (Last Reviewed 06/15/20 @ 17:57 by Wild Rich MD) Social History: Marital status: lives independently: Yes household members: spouse current occupational status: retired Highest level of school completed/degree received: high school graduate Service: No Tobacco: Smoking Status: Former smoker Alcohol: alcohol intake: current Alcohol type: wine alcohol intake frequency: 0-2 drinks per day Dietary Habits: caffeine: No Review Of Systems (GEN) - Review of Systems Generalized/Overall Review: Present: No Symptoms Reported - unable to obtain Immunizations: IMMUNIZATION HX Immunizations Up to Date Yes History of Influenza Vaccine Yes Hx Pneumococcal Vaccination Yes Allergies/Adverse Reactions: Allergies Allergy/AdvReac Type Severity Reaction Status Date / Time lisinopril Allergy Unknown Verified 06/15/20 14:26 levofloxacin Allergy Verified 06/15/20 14:26 terazosin AdvReac Pain Verified 06/15/20 14:26 tramadol AdvReac Other Verified 06/15/20 17:50 Home Medications: HOME MEDICATIONS Arformoterol Tartrate [Brovana] 15 mcg INHALATION DAILY 02/24/15 [Last Taken Unknown] Cyanocobalamin (Vitamin B-12) [Vitamin B-12] 1,000 mcg PO DAILY 02/24/15 [Last Taken Unknown] Escitalopram Oxalate [Lexapro] 10 mg PO DAILY 02/24/15 [Last Taken Unknown] Furosemide [Lasix] 40 mg PO DAILY 02/24/15 [Last Taken Unknown] glipiZIDE [Glucotrol Xl] 5 mg PO BID 02/24/15 [Last Taken Unknown] Budesonide [Pulmicort Respules] 2 ml INHALATION BID 05/08/17 [Last Taken Unknown] Magnesium Gluconate 250 mg PO DAILY 05/08/17 [Last Taken Unknown] guaiFENesin [Mucinex] 1,200 mg PO BID 05/08/17 [Last Taken Unknown] risperiDONE [Risperdal] 1 mg PO BID 05/09/17 [Last Taken Unknown] Lift chair 0 .ROUTE .MEDSUPPLY #1 ea 03/16/19 [Last Taken Unknown] ipratropium bromide 0.02 % solution for inhalation 1.25 ml IH BID ml 03/16/19 [Last Taken Unknown] metoprolol tartrate 50 mg tablet 25 mg PO BID tab 03/16/19 [Last Taken Unknown] potassium chloride 20 mEq tablet,extended release 20 meq PO DAILY 03/16/19 [Last Taken Unknown] pyridoxine (vitamin B6) 100 mg tablet 100 mg PO DAILY 03/16/19 [Last Taken Un known] sodium chloride 0.9 % for nebulization 2.5 ml IH Q8H PRN 03/16/19 [Last Taken Unknown] warfarin 6 mg tablet 7 mg PO DAILY tab 03/16/19 [Last Taken Unknown] Exam - Exam Vital Signs: Vital Signs - Last Taken Temp 37.0 C 06/15/20 19:58 Pulse 73 06/15/20 19:58 Resp 20 06/15/20 19:58 BP 173/80 H 06/15/20 19:58 Pulse Ox 100 06/15/20 19:58 Constitutional: Present: Alert, Elderly ENT Exam: Present: hard of hearing - severely Respiratory: Present: normal breath sounds, no respiratory distress Cardiovascular/Chest: Present: regular rate, rhythm Abdomen: Present: soft. Absent: suprapubic tenderness Extremity: Present: other - no pain with anterior pressure applied to bilateral iliacs. Absent: lower extremity edema Eye contact: Present: good eye contact Thoughts: Present: other - difficult to assess mental status as he needs to repeat most questions, and does not hear them correctly Diagnostic Studies: Abnormal Lab Results 06/15/20 06/15/20 06/15/20 Range/Units 14:35 14:35 14:35 RBC 4.19 L (4.7-6.0) M/mm3 Hgb 12.5 L (13.5-18.0) gm/dL Hct 38.4 L (42.0-52.0) % RDW 14.1 H (11.5-14.0) % Immature Gran % (Auto) 1.10 H (0.001-0.429) % Immature Gran # (Auto) 0.10 H (0.000-0.0310) K/mm3 Lymphocytes % 14.7 L (20-51) % Neutrophils # 6.6 H (1.3-6.0) K/mm3 Lymphocytes # 1.32 L (1.5-3.5) k/mm3 PT 54.1 H (9.1-10.7) Seconds INR (Anticoag Therapy) 5.65 H* (0.92-1.08) INR Anion Gap 14.3 H (6.8-13.8) mmol/L BUN 25 H (6-23) mg/dL Est GFR (Non-Af Amer) 56 L (60-130) mL/min Random Glucose 153 H (70-110) mg/dL Albumin 3.1 L (3.4-5.0) gm/dl Laboratory Results WBC 9.0 K/mm3 (4.0-10.5) 06/15/20 14:35 RBC 4.19 M/mm3 (4.7-6.0) L 06/15/20 14:35 Hgb 12.5 gm/dL (13.5-18.0) L 06/15/20 14:35 Hct 38.4 % (42.0-52.0) L 06/15/20 14:35 MCV 91.6 fl (78-100) 06/15/20 14:35 MCH 29.8 pg (27-31) 06/15/20 14:35 MCHC 32.6 g/dl (32-36) 06/15/20 14:35 RDW 14.1 % (11.5-14.0) H 06/15/20 14:35 Plt Count 183 K/mm3 (150-450) 06/15/20 14:35 MPV 8.9 fl (8-11.3) 06/15/20 14:35 Immature Gran % (Auto) 1.10 % (0.001-0.429) H 06/15/20 14:35 Immature Gran # (Auto) 0.10 K/mm3 (0.000-0.0310) H 06/15/20 14:35 Neutrophils % 73.2 % (42-75.0) 06/15/20 14:35 Lymphocytes % 14.7 % (20-51) L 06/15/20 14:35 Monocytes % 8.1 % (0.0-9) 06/15/20 14:35 Eosinophils % 2.3 % (0.0-3.0) 06/15/20 14:35 Basophils % 0.6 % (0.0-1.0) 06/15/20 14:35 Nucleated RBC % 0.0 k/mm3 (0-1) 06/15/20 14:35 Neutrophils # 6.6 K/mm3 (1.3-6.0) H 06/15/20 14:35 Lymphocytes # 1.32 k/mm3 (1.5-3.5) L 06/15/20 14:35 Monocytes # 0.7 k/mm3 (0.0-1.0) 06/15/20 14:35 Eosinophils # 0.2 k/mm3 (0.0-0.7) 06/15/20 14:35 Absolute Basophils 0.1 k/mm3 (0.0-0.1) 06/15/20 14:35 PT 54.1 Seconds (9.1-10.7) H 06/15/20 14:35 INR (Anticoag Therapy) 5.65 INR (0.92-1.08) H* 06/15/20 14:35 Sodium 140 mmol/L (132-142) 06/15/20 14:35 Plasma Sodium 141 mmol/L (130-142) 06/15/20 14:35 Potassium 4.0 mmol/L (3.4-4.6) 06/15/20 14:35 Chloride 101 mmol/L (97-106) 06/15/20 14:35 Carbon Dioxide 28.7 mmol/L (24-32.6) 06/15/20 14:35 Anion Gap 14.3 mmol/L (6.8-13.8) H 06/15/20 14:35 BUN 25 mg/dL (6-23) H 06/15/20 14:35 Creatinine 1.31 mg/dL (0.4-1.4) 06/15/20 14:35 Est GFR (Non-Af Amer) 56 mL/min (60-130) L 06/15/20 14:35 BUN/Creatinine Ratio 19.1 (9.0-21.6) 06/15/20 14:35 Random Glucose 153 mg/dL (70-110) H 06/15/20 14:35 Lactic Acid, Venous 1.5 mmol/L (0.4-2.0) 06/15/20 14:35 Calcium 8.3 mg/dL (7.9-10.9) 06/15/20 14:35 Calcium Adj for Albumin 8.7 mg/dL (8.4-10.2) 06/15/20 14:35 Magnesium 2.0 mg/dL (1.2-2.8) 06/15/20 14:35 Total Bilirubin 0.8 mg/dL (0.0-1.1) 06/15/20 14:35 AST 24 U/L (0-48) 06/15/20 14:35 ALT 35 U/L (19-67) 06/15/20 14:35 Alkaline Phosphatase 79 U/L (50-170) 06/15/20 14:35 Troponin I Less than 0.017 ng/mL (0.00-0.10) 06/15/20 14:35 Total Protein 6.7 gm/dL (6.2-8.2) 06/15/20 14:35 Albumin 3.1 gm/dl (3.4-5.0) L 06/15/20 14:35 TSH 0.941 uIU/mL (0.358-3.74) 06/15/20 14:35 Urine Color Yellow 06/15/20 15:01 Urine Appearance Clear (CLEAR) 06/15/20 15:01 Urine pH 6.0 pH (5.0-7.0) 06/15/20 15:01 Ur Specific [place] 1.010 SP.GR. (1.005-1.030) 06/15/20 15:01 Urine Protein Negative mg/dL (NEGATIVE) 06/15/20 15:01 Urine Glucose (UA) Negative mg/dL (NEGATIVE) 06/15/20 15:01 Urine Ketones Negative mg/dL (NEGATIVE) 06/15/20 15:01 Urine Blood Negative /ul (NEGATIVE) 06/15/20 15:01 Urine Nitrate Negative (NEGATIVE) 06/15/20 15:01 Urine Bilirubin Negative mg/dl (NEGATIVE) 06/15/20 15:01 Urine Urobilinogen Normal EU/dl (NORMAL) 06/15/20 15:01 Ur Leukocyte Esterase Negative /ul (NEGATIVE) 06/15/20 15:01 Urine RBC None seen /hpf (0-5) 06/15/20 15:01 Urine WBC None seen /hpf (0-5) 06/15/20 15:01 Ur Epithelial Cells None seen /hpf (0-5) 06/15/20 15:01 Urine Bacteria None seen (NONE) 06/15/20 15:01 Urine Culture Comments No culture indicated 06/15/20 15:01 SARS-CoV-2 (PCR) Not detected (NotDetected) 06/15/20 15:01 Assessment/Plan - Narrative Narrative: He sustained a fall earlier this week and reports inability to walk. Chart review shows he was complaining of an inability to walk back in March 2019 due to malunion of a tibial fracture. Physical therapy eval pending. ERP had concern for possible pelvic fracture, though he does not flinch when pressure is applied to his pelvis. He has a cochlear implant, so unable to obtain an MRI. If needed, could obtain CT of his pelvis. He reportedly lives at home with his , and I suspect they are getting more than she can handle, and he likely will benefit from placement after discharge. - Assessment/Plan (1) Fall Problem: Acute (2) Pain in pelvis Problem: Acute (3) Supratherapeutic INR Assessment: INR 5.65. Will hold his warfarin. No active signs of bleeding, so no treatment needed currently. Problem: Acute (4) AAA (abdominal aortic aneurysm) Assessment: Blood pressure is elevated, so restart home metoprolol. The does not appear to be related to his admission, so will defer further surveillance to his PCP. Problem: Chronic (5) [place] (hard of hearing) Problem: Chronic Qualifiers: Hearing loss type: unspecified Laterality: bilateral Qualified Code(s): H91.93 - Unspecified hearing loss, bilateral (6) Atrial fibrillation and flutter Problem: Chronic (7) Traumatic brain injury Problem: Acute (8) Diabetes mellitus type 2 in obese Problem: Chronic (9) Hypertension Problem: Chronic Qualifiers: Hypertension type: essential hypertension Qualified Code(s): I10 - Essential (primary) hypertension (10) Hyperlipidemia Problem: Chronic Qualifiers: Hyperlipidemia type: mixed hyperlipidemia Qualified Code(s): E78.2 - Mixed hyperlipidemia
[2020-06-15] MEDS ORDERED: METOPROLOL TARTRATE 50 MG TABLET PO SCH (21:00)
[2020-06-15] MEDS: glipiZIDE 5 MG TAB.SR.24H PO SCH (21:33)
[2020-06-15] MEDS: risperiDONE 1 MG TABLET PO SCH (21:34)
[2020-06-16] MEDS: glipiZIDE 5 MG TAB.SR.24H PO SCH ×2 (07:10→17:12)
[2020-06-16 07:33] LABS: Prothrombin Time (Patient) 54.8 Seconds (9.1-10.7)
[2020-06-16] MEDS: ACETAMINOPHEN 500 MG TABLET PO SCH ×3 (07:38→23:32)
[2020-06-16 08:11] LABS: INR 5.73 INR (0.92-1.08)
[2020-06-16] MEDS: METOPROLOL TARTRATE 25 MG TABLET PO SCH ×2 (09:25→20:04)
[2020-06-16] MEDS: ESCITALOPRAM OXALATE 10 MG TAB PO SCH (09:25)
[2020-06-16] MEDS: FUROSEMIDE 40 MG TABLET PO SCH (09:25)
[2020-06-16] MEDS: risperiDONE 1 MG TABLET PO SCH ×2 (09:25→20:04)
[2020-06-16] MEDS ORDERED: SODIUM CHLORIDE FOR INHALATION 3 ML VIAL.NEB IH PRN ×2 (10:20→11:15)
--- NOTE | 2020-06-16 10:43 | PN ---
Subjective - Date and Time Seen Date: 06/16/20 Time: 10:43 Subjective Narrative: Patient has pain with ambulating and sitting. Objective - Review of Systems Generalized/Overall Review: Denies: Fever Respiratory: Denies: Shortness of Breath Abdominal: Reports: No Symptoms Reported Genitourinary Symptoms: Reports: Retention Musculoskeletal Complaints: Reports: Other - pelvic pain with walking or sitting - Vitals Vitals: Last Vital Signs Temp 36.8 C 06/16/20 08:17 Pulse 82 06/16/20 09:25 Resp 16 06/16/20 08:17 BP 152/70 H 06/16/20 09:25 Pulse Ox 97 06/16/20 08:17 - Abnormal Lab Findings Abnormal Lab Findings: Abnormal Lab Results 06/15/20 06/15/20 06/15/20 Range/Units 14:35 14:35 14:35 RBC 4.19 L (4.7-6.0) M/mm3 Hgb 12.5 L (13.5-18.0) gm/dL Hct 38.4 L (42.0-52.0) % RDW 14.1 H (11.5-14.0) % Immature Gran % (Auto) 1.10 H (0.001-0.429) % Immature Gran # (Auto) 0.10 H (0.000-0.0310) K/mm3 Lymphocytes % 14.7 L (20-51) % Neutrophils # 6.6 H (1.3-6.0) K/mm3 Lymphocytes # 1.32 L (1.5-3.5) k/mm3 PT 54.1 H (9.1-10.7) Seconds INR (Anticoag Therapy) 5.65 H* (0.92-1.08) INR Anion Gap 14.3 H (6.8-13.8) mmol/L BUN 25 H (6-23) mg/dL Est GFR (Non-Af Amer) 56 L (60-130) mL/min Random Glucose 153 H (70-110) mg/dL Albumin 3.1 L (3.4-5.0) gm/dl 06/16/20 Range/Units 07:20 RBC (4.7-6.0) M/mm3 Hgb (13.5-18.0) gm/dL Hct (42.0-52.0) % RDW (11.5-14.0) % Immature Gran % (Auto) (0.001-0.429) % Immature Gran # (Auto) (0.000-0.0310) K/mm3 Lymphocytes % (20-51) % Neutrophils # (1.3-6.0) K/mm3 Lymphocytes # (1.5-3.5) k/mm3 PT 54.8 H (9.1-10.7) Seconds INR (Anticoag Therapy) 5.73 H* (0.92-1.08) INR Anion Gap (6.8-13.8) mmol/L BUN (6-23) mg/dL Est GFR (Non-Af Amer) (60-130) mL/min Random Glucose (70-110) mg/dL Albumin (3.4-5.0) gm/dl - Exam Constitutional: Present: Alert, Elderly ENT Exam: Present: hard of hearing - extremely, other - hearing aid on right ear. Small amount of dried blood on left nare. Respiratory: Present: lungs clear, normal breath sounds Cardiovascular/Chest: Present: regular rate, rhythm Abdomen: Present: soft, other - garcia draining blood tinged urine Extremity: Absent: lower extremity edema Cauti Physician Documentation - Urinary Catheter Management Coude Date of Insertion: 06/15/20 Time of Insertion: 15:03 Assessment/Plan - Problems/Diagnosis (1) Sacral fracture Problem: Acute Narrative: CT report reads: "Acute bilateral sacral ala fractures. Subtle bilateral nondisplaced L5 transverse process fractures." His reports he gets loopy with tramadol. If this happens while here, will change pain medication to norco. Tramadol could also be anticholinergic, so will use sparingly. Recommend facility placement after DC for strengthening. (2) Urinary retention Problem: Acute Narrative: He saw a urologist in the fall after having some difficulty urinating one morning. It resolved, and treatment not needed. His reports some urinary retention, and garcia was placed in the ED. Will remove the garcia, start tamsulosin, and if unable to urinate, will ask for guidance from [facility] urology. (3) Supratherapeutic INR Problem: Acute Narrative: His urine is blood tinged, and he's had a nosebleed overnight. will administer 5 mg Vit K and recheck INR tomorrow. His reports she's been giving him scheduled aleve several times a day for his pelvic pain. (4) Fall Problem: Acute Narrative: He was alone when he fell, so unsure what caused his fall. With his sacral fractures, he's at high risk for continued falls, and recommend nursing facility placement after DC. (5) AAA (abdominal aortic aneurysm) Problem: Chronic Narrative: Recommend rechecking in 6 months. (6) [place] (hard of hearing) Problem: Chronic Qualifiers: Hearing loss type: unspecified Laterality: bilateral Qualified Code(s): H91.93 - Unspecified hearing loss, bilateral (7) Atrial fibrillation and flutter Problem: Chronic (8) Traumatic brain injury Problem: Acute (9) Diabetes mellitus type 2 in obese Problem: Chronic (10) Hypertension Problem: Chronic Qualifiers: Hypertension type: essential hypertension Qualified Code(s): I10 - Essential (primary) hypertension (11) Hyperlipidemia Problem: Chronic Qualifiers: Hyperlipidemia type: mixed hyperlipidemia Qualified Code(s): E78.2 - Mixed hyperlipidemia
[2020-06-16] MEDS ORDERED: PHYTONADIONE (VIT K1) 5 MG TABLET PO ONE (10:46)
[2020-06-16] MEDS: BUDESONIDE 0.5 MG/2 ML VIAL.NEB IH SCH ×2 (11:10→18:11)
[2020-06-16] MEDS: IPRATROPIUM BROMIDE 0.5 MG/2.5 ML VIAL.NEB IH SCH ×2 (11:50→18:10)
[2020-06-16] MEDS: FORMOTEROL FUMARATE 20 MCG/2 ML VIAL IH SCH ×2 (11:50→18:09)
[2020-06-16] MEDS: traMADol HCL 50 MG TABLET PO PRN (13:18)
[2020-06-16] MEDS: TAMSULOSIN HCL 0.4 MG CAP.SR.24H PO SCH (17:12)
[2020-06-17] MEDS: FORMOTEROL FUMARATE 20 MCG/2 ML VIAL IH SCH ×2 (06:03→18:08)
[2020-06-17] MEDS: IPRATROPIUM BROMIDE 0.5 MG/2.5 ML VIAL.NEB IH SCH ×2 (06:03→18:05)
[2020-06-17] MEDS: BUDESONIDE 0.5 MG/2 ML VIAL.NEB IH SCH ×2 (06:04→18:08)
[2020-06-17 06:40] LABS: Hematocrit 35.4 % (42.0-52.0); Hemoglobin 11.7 gm/dL (13.5-18.0); Mean Cell Volume 91.7 fl (78-100); Mean Corpuscular Hemoglobin 30.3 pg (27-31); Mean Corpuscular Hgb Conc 33.1 g/dl (32-36); Platelet Count 188 K/mm3 (150-450); Red Blood Count 3.86 M/mm3 (4.7-6.0); Red Cell Distribution Width 14.1 % (11.5-14.0); White Blood Count 9.3 K/mm3 (4.0-10.5)
[2020-06-17] MEDS: ACETAMINOPHEN 500 MG TABLET PO SCH ×3 (06:41→23:12)
[2020-06-17] MEDS: glipiZIDE 5 MG TAB.SR.24H PO SCH ×2 (06:41→16:59)
[2020-06-17 06:43] LABS: Prothrombin Time (Patient) 17.5 Seconds (9.1-10.7)
[2020-06-17 06:44] LABS: Anion Gap 10.3 mmol/L (6.8-13.8); BUN/Creatinine Ratio 17.5 (9.0-21.6); Calcium * 8.4 mg/dL (7.9-10.9); Carbon Dioxide 26.9 mmol/L (24-32.6); Estimated Creat Clear 50.7; INR 1.73 INR (0.92-1.08); Potassium 3.2 mmol/L (3.4-4.6)
[2020-06-17] MEDS: traMADol HCL 50 MG TABLET PO PRN (08:22)
[2020-06-17] MEDS: ESCITALOPRAM OXALATE 10 MG TAB PO SCH (08:22)
[2020-06-17] MEDS: FUROSEMIDE 40 MG TABLET PO SCH (08:22)
[2020-06-17] MEDS: METOPROLOL TARTRATE 25 MG TABLET PO SCH ×2 (08:22→20:20)
[2020-06-17] MEDS: risperiDONE 1 MG TABLET PO SCH ×2 (08:22→20:21)
--- NOTE | 2020-06-17 11:37 | PN ---
Subjective - Date and Time Seen Date: 06/17/20 Time: 08:20 Subjective Narrative: His garcia was removed yesterday, and he reports having urinated some since then, but not very much. His back pain is still 02/15. Objective - Review of Systems Generalized/Overall Review: Reports: Weakness Respiratory: Denies: Shortness of Breath Abdominal: Reports: No Symptoms Reported Genitourinary Symptoms: Reports: Hesitancy Musculoskeletal Complaints: Reports: Other - pelvic pain - Vitals Vitals: Last Vital Signs Temp 36.9 C 06/17/20 10:09 Pulse 68 06/17/20 10:41 Resp 20 06/17/20 10:09 BP 147/69 06/17/20 10:09 Pulse Ox 94 06/17/20 10:09 - Abnormal Lab Findings Abnormal Lab Findings: Abnormal Lab Results 06/17/20 06/17/20 06/17/20 Range/Units 06:28 06:28 06:28 RBC 3.86 L (4.7-6.0) M/mm3 Hgb 11.7 L (13.5-18.0) gm/dL Hct 35.4 L (42.0-52.0) % RDW 14.1 H (11.5-14.0) % PT 17.5 H (9.1-10.7) Seconds INR (Anticoag Therapy) 1.73 H (0.92-1.08) INR Potassium 3.2 L (3.4-4.6) mmol/L Random Glucose 146 H (70-110) mg/dL - Exam Constitutional: Present: Alert, Elderly ENT Exam: Present: hard of hearing Respiratory: Present: lungs clear, normal breath sounds Cardiovascular/Chest: Present: regular rate, rhythm Abdomen: Present: soft Extremity: Absent: lower extremity edema Eye contact: Present: cooperative, good eye contact Cauti Physician Documentation - Urinary Catheter Management Coude Date of Insertion: 06/15/20 Time of Insertion: 15:03 Assessment/Plan Plan Narrative: He has bilateral sacral ala fractures after a fall last week. His reports urine retention also. He has been able to urinate since the catheter was removed. Changed from tramadol to norco today, since tramadol can be anticholinergic. He is at risk for further falls, and I feel like he would not be safe at home. Recommend NH/rehab placement after DC. When he has been accepted to a facility, he is ok to DC. His INR decreased to 1.73 after 5 mg Vit D yesterday, so ok to resume home warfarin dosing. Recheck in am. - Problems/Diagnosis (1) Sacral fracture Problem: Acute (2) Urinary retention Problem: Acute (3) Supratherapeutic INR Problem: Acute (4) Fall Problem: Acute (5) AAA (abdominal aortic aneurysm) Problem: Chronic (6) [place] (hard of hearing) Problem: Chronic Qualifiers: Hearing loss type: unspecified Laterality: bilateral Qualified Code(s): H91.93 - Unspecified hearing loss, bilateral (7) Atrial fibrillation and flutter Problem: Chronic (8) Traumatic brain injury Problem: Acute (9) Diabetes mellitus type 2 in obese Problem: Chronic (10) Hypertension Problem: Chronic Qualifiers: Hypertension type: essential hypertension Qualified Code(s): I10 - Essential (primary) hypertension (11) Hyperlipidemia Problem: Chronic Qualifiers: Hyperlipidemia type: mixed hyperlipidemia Qualified Code(s): E78.2 - Mixed hyperlipidemia
[2020-06-17] MEDS: HYDROcodone/ACETAMINOPHEN 1 EACH TABLET PO PRN (12:30)
[2020-06-17] MEDS: TAMSULOSIN HCL 0.4 MG CAP.SR.24H PO SCH (16:59)
[2020-06-17] MEDS ORDERED: WARFARIN SODIUM 5 MG TABLET PO SCH (17:00)
[2020-06-18 02:25] LABS: Urine Bilirubin Negative (NEGATIVE); Urine Blood 50 /ul (NEGATIVE); Urine Ketone Negative (NEGATIVE); Urine Nitrite Negative (NEGATIVE); Urine Protein Negative (NEGATIVE); Urine Specific Gravity <=1.005 SP.GR. (1.005-1.030); Urine Urobilinogen Normal (NORMAL)
[2020-06-18 02:31] LABS: Urine Appearance Clear (CLEAR); Urine Bacteria TRACE; Urine Color Yellow; Urine RBC 25-50 /hpf (0-5); Urine WBC 0-5 /hpf (0-5)
[2020-06-18] MEDS: BUDESONIDE 0.5 MG/2 ML VIAL.NEB IH SCH (06:11)
[2020-06-18] MEDS: FORMOTEROL FUMARATE 20 MCG/2 ML VIAL IH SCH (06:11)
[2020-06-18] MEDS: IPRATROPIUM BROMIDE 0.5 MG/2.5 ML VIAL.NEB IH SCH (06:13)
[2020-06-18 06:28] LABS: Prothrombin Time (Patient) 12.5 Seconds (9.1-10.7)
[2020-06-18 06:33] LABS: INR 1.21 INR (0.92-1.08)
[2020-06-18] MEDS: ACETAMINOPHEN 500 MG TABLET PO SCH (07:00)
[2020-06-18] MEDS: glipiZIDE 5 MG TAB.SR.24H PO SCH (07:01)
[2020-06-18] MEDS ORDERED: WARFARIN SODIUM 5 MG TABLET PO ONE (08:15)
--- NOTE | 2020-06-18 08:22 | DS ---
(1) Sacral fracture Problem: Acute (2) Urinary retention Problem: Resolved (3) Supratherapeutic INR Problem: Resolved (4) Fall Problem: Acute (5) AAA (abdominal aortic aneurysm) Problem: Chronic (6) [place] (hard of hearing) Problem: Chronic Qualifiers: Hearing loss type: unspecified Laterality: bilateral Qualified Code(s): H91.93 - Unspecified hearing loss, bilateral (7) Atrial fibrillation and flutter Problem: Chronic (8) Traumatic brain injury Problem: Chronic (9) Diabetes mellitus type 2 in obese Problem: Chronic (10) Hypertension Problem: Chronic Qualifiers: Hypertension type: essential hypertension Qualified Code(s): I10 - Essential (primary) hypertension (11) Hyperlipidemia Problem: Chronic Qualifiers: Hyperlipidemia type: mixed hyperlipidemia Qualified Code(s): E78.2 - Mixed hyperlipidemia Date of Discharge:: 06/18/20 Hospital Course: History obtained primarily from ERP. Patient is extremely hard of hearing and does not understand many questions. When asked why he came into the ED, he reported he could not get warm. He states he had a fall the other day and has bilateral hip pain. He reportedly went to the ER at [facility], and x-rays were negative. ERP checked rectal tone, which was normal. 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 He is admitted for physical therapy evaluation and potential placement. ED workup also found elevated INR of 5.65. No significant electrolyte abnormalities, neg troponin, and lactate not elevated. CT scan of his pelvis showed bilateral sacral ala fractures. His reported urinary retention, but he was able to urinate after the catheter was removed. Tamsulosin was started during this stay. His pain was improved with norco, and will continue this for a couple of weeks after DC. He had some hematuria and epistaxis while here, and was given a dose of 5 mg Vit K, and INR was 1.73, and 1.21 the following morning, the morning of DC. He was given an extra dose of 5 mg warfarin. Recommend rechecking tomorrow, 06/19, 06/21, and regularly until within therapeutic range. His potassium was slightly decreased, so he was started on potassium on 06/18/20. He will be going to [facility] for further PT. Procedures Performed: none Results and Findings: Lab Pending Results 06/15/20 14:35: WBC 9.0, RBC 4.19 L, Hgb 12.5 L, Hct 38.4 L, MCV 91.6, MCH 29.8, MCHC 32.6, RDW 14.1 H, Plt Count 183, MPV 8.9, Immature Gran % (Auto) 1.10 H, Immature Gran # (Auto) 0.10 H, Neutrophils % 73.2, Lymphocytes % 14.7 L, Monocytes % 8.1, Eosinophils % 2.3, Basophils % 0.6, Nucleated RBC % 0.0, Neutrophils # 6.6 H, Lymphocytes # 1.32 L, Monocytes # 0.7, Eosinophils # 0.2, Absolute Basophils 0.1 06/15/20 14:35: Sodium 140, Plasma Sodium 141, Potassium 4.0, Chloride 101, Carbon Dioxide 28.7, Anion Gap 14.3 H, BUN 25 H, Creatinine 1.31, Est GFR (Non- Af Amer) 56 L, BUN/Creatinine Ratio 19.1, Random Glucose 153 H, Calcium 8.3, Gary cium Adj for Albumin 8.7, Total Bilirubin 0.8, AST 24, ALT 35, Alkaline Phosphatase 79, Total Protein 6.7, Albumin 3.1 L 06/15/20 14:35: Magnesium 2.0, Troponin I Less than 0.017, TSH 0.941 06/15/20 14:35: PT 54.1 H, INR (Anticoag Therapy) 5.65 H* 06/15/20 14:35: Lactic Acid, Venous 1.5 06/15/20 15:01: SARS-CoV-2 (PCR) Not detected 06/15/20 15:01: Urine Color Yellow, Urine Appearance Clear, Urine pH 6.0, Ur Specific [place] 1.010, Urine Protein Negative, Urine Glucose (UA) Negative, Urine Ketones Negative, Urine Blood Negative, Urine Nitrate Negative, Urine Bilirubin Negative, Urine Urobilinogen Normal, Ur Leukocyte Esterase Negative, Urine RBC None seen, Urine WBC None seen, Ur Epithelial Cells None seen, Urine Bacteria None seen, Urine Culture Comments No culture indicated 06/16/20 07:20: PT 54.8 H, INR (Anticoag Therapy) 5.73 H* 06/17/20 06:28: PT 17.5 H, INR (Anticoag Therapy) 1.73 H 06/17/20 06:28: WBC 9.3, RBC 3.86 L, Hgb 11.7 L, Hct 35.4 L, MCV 91.7, MCH 30.3, MCHC 33.1, RDW 14.1 H, Plt Count 188, MPV 9.0 06/17/20 06:28: Sodium 139, Plasma Sodium 140, Potassium 3.2 L, Chloride 105, Carbon Dioxide 26.9, Anion Gap 10.3, BUN 20, Creatinine 1.14, Est GFR (Non-Af Amer) 65, BUN/Creatinine Ratio 17.5, Random Glucose 146 H, Calcium 8.4 06/18/20 02:00: Urine Color Yellow, Urine Appearance Clear, Urine pH 6.0, Ur Specific [place] <=1.005, Urine Protein Negative, Urine Glucose (UA) Negative, Urine Ketones Negative, Urine Blood 50 H, Urine Nitrate Negative, Urine Bilirubin Negative, Urine Urobilinogen Normal, Ur Leukocyte Esterase Negative, Urine RBC 25-50 H, Urine WBC 0-5, Ur Epithelial Cells None seen, Urine Bacteria Trace 06/18/20 06:10: PT 12.5 H, INR (Anticoag Therapy) 1.21 H Discharge Location: [facility] Disposition: SNF Condition: Fair Discharge Activity: Activity as tolerated Discharge Diet: General/regular food Halfway Therapy: Physical Therapy, Occupation Therapy Referrals: Deonte Cummins FNP [[facility]] - One Week Additional Patient Instructions (free text): To [facility], for therapies, PT and OT to evaluate and treat. Prescriptions (Any new or edited meds): HYDROcodone/ACETAMINOPHEN [[place] 5-325] 1 each PO Q6H PRN #30 tablet PRN Reason: Pain Transmission Status: Pending to [facility] Complete Home Medications List: Complete Home Medication List: Arformoterol Tartrate [Brovana] 15 mcg INHALATION DAILY 02/24/15 Cyanocobalamin (Vitamin B-12) [Vitamin B-12] 1,000 mcg PO DAILY 02/24/15 Escitalopram Oxalate [Lexapro] 10 mg PO DAILY 02/24/15 Furosemide [Lasix] 40 mg PO DAILY 02/24/15 glipiZIDE [Glucotrol Xl] 5 mg PO BID 02/24/15 Budesonide [Pulmicort Respules] 2 ml INHALATION BID 05/08/17 Magnesium Gluconate 250 mg PO DAILY 05/08/17 guaiFENesin [Mucinex] 1,200 mg PO BID 05/08/17 risperiDONE [Risperdal] 1 mg PO BID 05/09/17 Lift chair 0 .ROUTE .MEDSUPPLY #1 ea 03/16/19 ipratropium bromide 0.02 % solution for inhalation 1.25 ml IH BID ml 03/16/19 metoprolol tartrate 50 mg tablet 25 mg PO BID tab 03/16/19 potassium chloride 20 mEq tablet,extended release 20 meq PO DAILY 03/16/19 pyridoxine (vitamin B6) 100 mg tablet 100 mg PO DAILY 03/16/19 sodium chloride 0.9 % for nebulization 2.5 ml IH Q8H PRN 03/16/19 warfarin 6 mg tablet 6 mg PO MOWEFR tab 03/16/19 HYDROcodone/ACETAMINOPHEN [[place] 5-325] 1 each PO Q6H PRN #30 tablet 06/18/20 Warfarin Sodium [Coumadin] 5 mg PO SUTUTHSA 06/18/20 Forms: Patient Portal Registration
[2020-06-18] MEDS ORDERED: POTASSIUM CHLORIDE 20 MEQ TABLET.SA PO SCH (09:00)
[2020-06-18] MEDS: ESCITALOPRAM OXALATE 10 MG TAB PO SCH (09:27)
[2020-06-18] MEDS: risperiDONE 1 MG TABLET PO SCH (09:27)
[2020-06-18] MEDS: METOPROLOL TARTRATE 25 MG TABLET PO SCH (09:28)
[2020-06-18] MEDS: FUROSEMIDE 40 MG TABLET PO SCH (09:28)
[2020-06-18] MEDS: HYDROcodone/ACETAMINOPHEN 1 EACH TABLET PO PRN (09:30)
[2020-06-18 09:58] VITALS: BP 161/75
[2020-06-18] MEDS ORDERED: WARFARIN SODIUM 6 MG TABLET PO SCH (17:00)
== END 2020-06-18 10:08 ==
LOC: MS 14:20 → ER 14:20 → MS 17:45
PROVIDERS: ADMIT Family Medicine; ATTEND Family Medicine
DX: I48.20 Chronic atrial fibrillation, unspecified; W19.XXXA Unspecified fall, initial encounter; S32.110A Nondisplaced Zone I fracture of sacrum, initial encounter for closed fracture; R53.1 Weakness; I71.4 Abdominal aortic aneurysm, without rupture; E78.2 Mixed hyperlipidemia; E11.9 Type 2 diabetes mellitus without complications; H91.93 Unspecified hearing loss, bilateral; Z79.01 Long term (current) use of anticoagulants; M25.552 Pain in left hip; R33.9 Retention of urine, unspecified; M25.551 Pain in right hip; I10 Essential (primary) hypertension